=== PATIENT | female | born 1955 | race Caucasian/White ===

== ENCOUNTER 2017-07-15 17:55 | Inpatient (IN) | payer OTHER ==
[~2017-07-15] VITALS: Ht 162.6 cm; Wt 70.6 kg
--- NOTE | ~2017-07-15 | EKG ---
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 JAMA : 1955 Requested By: Dustin Ortega Order Number: [id number] MD: Jorje Vizcarra Measurements Intervals [place] Rate: 59 P: 64 DE: 41 QRS: 32 QRSD: 101 T: 103 QT: 375 QTc: 372 Interpretive Statements Sinus bradycardia Nonspecific ST and T wave abnormality Anteroseptal infarct, old No previous ECG available for comparison Electronically Signed On 07-16-2017 8:21:26 MANAGER OF MAINTENANCE by Jorje Vizcarra [email or web address] <ELECTRONICALLY SIGNED> By: Jorje Vizcarra MD, [facility] 07/16/17 0821 01 01 Jorje Vizcarra MD, FAC /EPI
[2017-07-15 17:57] VITALS: BP 132/56
[2017-07-15] MEDS ORDERED: SYNTHROID50 MCG PO (18:11)
[2017-07-15] MEDS ORDERED: TRINATAL RX 11 EACH PO (18:11)
[2017-07-15] MEDS ORDERED: BRINTELLIX10 MG PO (18:12)
[2017-07-15 18:35] LABS: URINE BILIRUBIN NEGATIVE (Negative); URINE BLOOD 2+ (Negative); URINE CLARITY CLEAR; URINE COLOR YELLOW; URINE GLUCOSE-RANDOM* NEGATIVE (Negative); URINE KETONES NEGATIVE (Negative); URINE LEUKOCYTES-REFLEX NEGATIVE (Negative); URINE NITRITE-REFLEX NEGATIVE (Negative); URINE PROTEIN (DIPSTICK) 1+ (Negative); URINE SPECIFIC GRAVITY >= 1.030 (1.005-1.035); URINE UROBILINOGEN 0.2 E.U./dl (0.2-1.0)
[2017-07-15 19:20] LABS: AMP/METHAMP POSITIVE (Negative); BARBITURATES Negative (Negative); BENZODIAZEPINES Negative (Negative); COCAINE Negative (Negative); METHADONE Negative (Negative); OPIATES Negative (Negative); PCP Negative (Negative)
[2017-07-15 19:22] LABS: ABSOLUTE NEUTROPHILS 3.8 thou/uL (1.4-8.2); BASOPHILS 0.6 % (0.0-2.0); EOSINOPHILS 1.1 % (0.0-3.0); HEMATOCRIT 28.6 % (37.0-47.0); HEMOGLOBIN 9.8 gm/dL (12.0-15.0); MCH 31.7 pg (26.0-34.0); MCHC 34.1 g/dL (28.0-37.0); MCV 93.1 fL (80.0-100.0); MONOCYTES 8.8 % (1.0-8.0); PLATELET COUNT 207 thou/uL (150-400); POLYS 78.5 % (36.0-66.0); RBC 3.07 mil/uL (4.20-5.00); RDW 16.3 % (10.5-14.5); WBC 4.8 thou/uL (4.0-11.0)
[2017-07-15 19:24] LABS: HYALINE CASTS 4-10 Moderate /LPF (None Seen); MUCUS 4-6 Moderate strn/LPF (None Seen)
[2017-07-15 19:25] LABS: SQUAMOUS None Seen /LPF (0-3); URINE WBC-REFLEX 0-5 Rare /HPF (0-5)
[2017-07-15 19:26] LABS: CRYSTALS None Seen /LPF (None Seen); URINE RBC 0-2 Rare /HPF (0-2)
[2017-07-15 19:46] LABS: ANION GAP 10 mmol/L (7-16); BUN 29 mg/dL (7-18); CALCIUM 8.8 mg/dL (8.5-10.1); CHLORIDE 100 mmol/L (98-107); CO2 27 mmol/L (21-32); CREATININE 1.4 mg/dL (0.6-1.0); GLUCOSE 61 mg/dL (74-106); POTASSIUM 3.8 mmol/L (3.5-5.1); SODIUM 137 mmol/L (136-145)
[2017-07-15 19:58] LABS: ALBUMIN 4.2 g/dL (3.4-5.0); MAGNESIUM 2.1 mg/dL (1.8-2.4); SGOT 191 U/L (15-37); SGPT 81 U/L (30-65); TOTAL BILIRUBIN 0.4 mg/dL (<0.1-1.0); TOTAL PROTEIN 7.1 g/dL (6.4-8.2); TROPONIN-I < 0.04 ng/mL (<0.06)
[2017-07-15 20:56] VITALS: BP 162/68
[2017-07-15 21:20] VITALS: BP 173/80
[2017-07-16 05:37] LABS: CREATININE 1.1 mg/dL (0.6-1.0)
[2017-07-16 05:50] VITALS: BP 164/62
[2017-07-16 08:54] VITALS: BP 132/64
[2017-07-16 12:43] VITALS: BP 135/66
[2017-07-16 18:36] VITALS: BP 137/75
[2017-07-16 19:30] VITALS: BP 135/75
[2017-07-17 03:35] VITALS: BP 139/60
[2017-07-17 05:38] LABS: ABSOLUTE NEUTROPHILS 4.8 thou/uL (1.4-8.2); BASOPHILS 0.4 % (0.0-2.0); EOSINOPHILS 0.3 % (0.0-3.0); HEMOGLOBIN 9.3 gm/dL (12.0-15.0); LYMPHOCYTES 15.4 % (24.0-44.0); MCH 31.6 pg (26.0-34.0); MCHC 34.3 g/dL (28.0-37.0); MCV 92.2 fL (80.0-100.0); MONOCYTES 11.4 % (1.0-8.0); PLATELET COUNT 231 thou/uL (150-400); POLYS 72.5 % (36.0-66.0); RBC 2.93 mil/uL (4.20-5.00); RDW 16.5 % (10.5-14.5); WBC 6.7 thou/uL (4.0-11.0)
[2017-07-17 05:45] LABS: CREATININE 1.4 mg/dL (0.6-1.0); POTASSIUM 3.5 mmol/L (3.5-5.1)
[2017-07-17 08:53] VITALS: BP 148/69
[2017-07-17 17:12] LABS: HAV IgM AB (ANTI-HAV IgM) Negative (Negative); HEPATITIS B SURFACE AG Negative (Negative); HEPATITIS C VIRUS AB >11.0 (0.0-0.9)
[2017-07-17 17:50] VITALS: BP 135/75
[2017-07-17 19:21] VITALS: BP 142/68
[2017-07-18 04:45] VITALS: BP 138/64
[2017-07-18 08:18] VITALS: BP 151/72
[2017-07-18 11:09] LABS: HEMATOCRIT 27.7 % (37.0-47.0); HEMOGLOBIN 9.4 gm/dL (12.0-15.0); MCH 31.6 pg (26.0-34.0); MCV 93.2 fL (80.0-100.0); PLATELET COUNT 199 thou/uL (150-400); RBC 2.97 mil/uL (4.20-5.00); RDW 16.5 % (10.5-14.5); WBC 4.5 thou/uL (4.0-11.0)
[2017-07-18 11:58] LABS: ABSOLUTE NEUTROPHILS 3.2 thou/uL (1.4-8.2); ANISOCYTOSIS 1+
[2017-07-18 12:05] LABS: CALCIUM 8.5 mg/dL (8.5-10.1); CREATININE 1.3 mg/dL (0.6-1.0); POTASSIUM 3.4 mmol/L (3.5-5.1)
[2017-07-18 15:53] VITALS: BP 145/58
[2017-07-18 19:26] VITALS: BP 133/59
[2017-07-19 03:55] VITALS: BP 123/75
[2017-07-19 04:28] LABS: HEMATOCRIT 27.4 % (37.0-47.0); HEMOGLOBIN 9.4 gm/dL (12.0-15.0); MCHC 34.4 g/dL (28.0-37.0); PLATELET COUNT 228 thou/uL (150-400); RBC 2.95 mil/uL (4.20-5.00); RDW 16.2 % (10.5-14.5); WBC 7.3 thou/uL (4.0-11.0)
[2017-07-19 04:31] LABS: CALCIUM 8.5 mg/dL (8.5-10.1); CREATININE 1.1 mg/dL (0.6-1.0); POTASSIUM 3.4 mmol/L (3.5-5.1)
[2017-07-19 05:14] LABS: ABSOLUTE NEUTROPHILS 5.1 thou/uL (1.4-8.2); ANISOCYTOSIS 2+
[2017-07-19] MEDS ORDERED: SYNTHROID75 MCG PO (08:25)
[2017-07-19] MEDS ORDERED: VISTARIL 25 MG25 M1 PO (08:26)
[2017-07-19 09:18] VITALS: BP 133/64
[2017-07-19 17:46] VITALS: BP 139/50
[2017-07-19 19:45] VITALS: BP 134/108
[2017-07-20 06:25] VITALS: BP 140/70
[2017-07-20 07:35] VITALS: BP 116/45
[2017-07-20] MEDS ORDERED: LEVAQUIN 500 M500 M3 PO (08:55)
[2017-07-20 11:18] VITALS: BP 116/45
[2017-07-20 11:26] VITALS: BP 114/51
== END 2017-07-20 15:42 | disposition home or self-care (01) | DRG 683 ==
LOC: ER 17:55 → EROBS 20:26 → 3W 20:26 → ENTRNSPT 07-20 15:32 → EDTRNSPTSTS 07-20 15:34 → 3W 07-20 15:42
PROVIDERS: Emergency Medicine; Family Medicine; Nurse Practitioner Acute Care
DX: N17.9 Acute kidney failure, unspecified (principal); M62.82 Rhabdomyolysis; E46 Unspecified protein-calorie malnutrition; J44.9 Chronic obstructive pulmonary disease, unspecified; F15.10 Other stimulant abuse, uncomplicated; E03.9 Hypothyroidism, unspecified; E86.0 Dehydration; D64.9 Anemia, unspecified; Z68.26 Body mass index [BMI] 26.0-26.9, adult; Z88.0 Allergy status to penicillin
CPT/HCPCS: 10879

== ENCOUNTER 2020-09-10 14:19 | Inpatient (IN) | payer OTHER ==
[~2020-09-10] VITALS: Ht 162.6 cm; Wt 72.6 kg
[2020-09-10 14:19] VITALS: BP 156/57
[~2020-09-10 14:19] MED LIST: BRINTELLIX10 MG PO; LEVAQUIN 500 M500 M3 PO; SYNTHROID50 MCG PO; SYNTHROID75 MCG PO; TRINATAL RX 11 EACH PO; VISTARIL 25 MG25 M1 PO
[2020-09-10 15:37] LABS: MCH 21.7 pg (26.0-34.0); MCHC 31.1 g/dL (28.0-37.0); MCV 69.9 fL (80.0-100.0); PLATELET COUNT 260 thou/uL (150-400); RBC 2.42 mil/uL (4.20-5.00); RDW 18.4 % (10.5-14.5); WBC 6.4 thou/uL (4.0-11.0)
[2020-09-10 15:39] LABS: CREATININE 1.2 mg/dL (0.6-1.0); HEMATOCRIT 16.9 % (37.0-47.0); POTASSIUM 3.4 mmol/L (3.5-5.1)
[2020-09-10 15:42] LABS: HEMOGLOBIN 5.3 gm/dL (12.0-15.0)
[2020-09-10 15:45] LABS: ALBUMIN 4.1 g/dL (3.4-5.0); TOTAL BILIRUBIN 0.3 mg/dL (0.2-1.0); TOTAL PROTEIN 7.3 g/dL (6.4-8.2)
[2020-09-10 16:21] LABS: ABSOLUTE NEUTROPHILS 5.3 thou/uL (1.4-8.2); ANISOCYTOSIS 2+; HYPOCHROMASIA 1+; MICROCYTES 2+; PLATELET ESTIMATE NORMAL
[2020-09-10 17:14] LABS: % SATURATION 3 % (20-39); IRON 14 ug/dL (50-170); TIBC 440 ug/dL (250-450)
[2020-09-10 17:15] VITALS: BP 166/79; BP 176/74; BP 180/84; BP 183/80
[2020-09-10 17:41] LABS: FOLIC ACID 10.4 ng/mL (8.6-58.9)
[2020-09-10 18:35] VITALS: BP 183/80
[2020-09-10 20:07] VITALS: BP 149/78
[2020-09-11 07:23] LABS: CALCIUM 8.9 mg/dL (8.5-10.1); CREATININE 1.2 mg/dL (0.6-1.0); POTASSIUM 3.6 mmol/L (3.5-5.1)
--- NOTE | 2020-09-11 07:38 | NUR ---
VSS-AFEBRILE. ALERT AND ORIENTED X 4, LUNGS CLEAR-ROOM AIR. NON PRODUCTIVE COUGH. OCCASIONAL ANXIETY, SOA WITH EXERTION. NO REPORTED PAIN. OOB AD YOLY-STEADY ON FEET. CALLS APPROPRIATELY FOR ANY NEEDED ASSISTANCE.
--- NOTE | 2020-09-11 07:41 | NUR ---
BLOOD TRANSFUSION THAT WAS STARTED IN THE ER ON 09/10/20 WAS COMPLETED ON 09/10/20 @ 2130. TOLERATED INFUSION WELL WITH NO REACTIONS.
[2020-09-11 08:09] VITALS: BP 160/64
[2020-09-11 12:08] VITALS: BP 118/70
[2020-09-11 12:11] VITALS: BP 142/62; BP 145/65
--- NOTE | 2020-09-11 13:23 | NUR ---
ASSUMED CARE OF PT AT 0700 THIS MORNING, PT IS A/OX4, EYES PERRLA, NEURO ASSESSMENT UNREMARKABLE, SKIN INTACT, NO TENTING, W/D/P CR< 3SEC, WHEEZING IN UPPER AIRWAY WITH SLIGHT DIMINISH TO LOWER LOBES. PT WAS GIVEN BLOOD TRANSFUSION DUE TO LOW HGB. DISTAL PULSES PRESENT AND IV IS PLACE IN RT FA. ASSESSMENT OTERWISE UNREMARKABLE. CALL LIGHT AND OTHER NEEDS WITHIN REACH.
[2020-09-11 17:13] VITALS: BP 150/66
[2020-09-11 20:56] VITALS: BP 147/69
--- NOTE | 2020-09-12 05:21 | NUR ---
PT AMBULATING IN ROOM INDEPENDENTLY AND IS TOLERATING WELL. DENIES PAIN. RESTING COMFORTABLY. NO NEEDS VOICED. CALL LIGHT WITHIN REACH. FREQUENT OBSERVATION.
[2020-09-12 08:36] VITALS: BP 133/69
[2020-09-12] MEDS ORDERED: PROTONIX 20 MG20 M1 PO (10:28)
--- NOTE | 2020-09-12 10:36 | NUR ---
PT A&OX4, VSS, DENIES PAIN. PATIENT ROOM AIR, WHEEZES, RECEIVES BREATHING TREATMENTS. PATIENT STABLE ON FEET. NO SIGNS OF DISTRESS. HGB IS 8.2 TODAY, BLOOD TRANSFUSED 09/11. NO SIGNS OF DISTRESS. WILL CONTINUE TO MONITOR.
[2020-09-12 11:22] VITALS: BP 133/69
[2020-09-12 11:23] VITALS: BP 133/69
--- NOTE | 2020-09-12 11:23 | EKG ---
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 : 1955 Requested By: Maurisio Parnell Order Number: [id number] : Twin Stuart Measurements Intervals [place] Rate: 79 P: 44 OR: 176 QRS: 13 QRSD: 99 T: 49 QT: 440 QTc: 505 Interpretive Statements Sinus rhythm Prolonged QT interval Compared to ECG 07/15/2017 19:02:51 Prolonged QT interval now present Sinus bradycardia no longer present ST (T wave) deviation no longer present Myocardial infarct finding no longer present Electronically Signed On 09-12-2020 11:23:12 CDT by Twin Stuart [email or web address] <ELECTRONICALLY SIGNED> By: Twin Stuart MD, FACC 09/12/20 1123 1435 1435 Twin Stuart MD, FAC /EPI
== END 2020-09-12 13:00 | disposition home or self-care (01) | DRG 812 ==
LOC: ER 14:19 → EROBS 16:45 → 4W 18:52
PROVIDERS: Nurse Practitioner Family; ADMIT Family Medicine; ATTEND Family Medicine
PROC: 30233N1 Transfusion of Nonautologous Red Blood Cells into Peripheral Vein, Percutaneous Approach (ICD-10-PCS; principal; 2020-09-11)
DX: D50.9 Iron deficiency anemia, unspecified (principal); J44.9 Chronic obstructive pulmonary disease, unspecified; E03.9 Hypothyroidism, unspecified; F32.9 Major depressive disorder, single episode, unspecified; R91.8 Other nonspecific abnormal finding of lung field; F17.210 Nicotine dependence, cigarettes, uncomplicated; Z79.899 Other long term (current) drug therapy; Z88.0 Allergy status to penicillin
CPT/HCPCS: 10040